=== PATIENT | male | born 1990 | race American Indian/Alaskan Native ===

== ENCOUNTER 2019-02-05 13:43 | Emergency (ER) | payer MEDICAID ==
[2019-02-05 13:44] VITALS: BMI 25.8
[2019-02-05 14:04] VITALS: BP 128/81; PULSE 98; RESP 16; TEMP 98.2; O2SAT 98
--- NOTE | 2019-02-05 15:30 | C.PDOC ---
History Of Present Illness 28 y/o male presents to the ER complaining of nasal congestion, dry cough, sore throat, and body aches which have been present for the past 4 days. Patient states that he has associated nausea. Patient denies having fever,chills, vomiting, and abdominal pain. Time Seen by Provider: 02/05/19 14:26 Chief Complaint (Nursing): Cough, Cold, Congestion History Per: Patient History/Exam Limitations: no limitations Onset/Duration Of Symptoms: Days Current Symptoms Are (Timing): Still Present Severity: Moderate Past Medical History Reviewed: Historical Data, Nursing Documentation, Vital Signs Vital Signs: Last Vital Signs Temp 98.2 F 02/05/19 14:02 Pulse 98 H 02/05/19 14:02 Resp 16 02/05/19 14:02 BP 128/81 02/05/19 14:02 Pulse Ox 98 02/05/19 14:02 - Medical History PMH: No Chronic Diseases Denies: Chronic Kidney Disease Surgical History: No Surg Hx Family History: States: No Known Family Hx - Social History Hx Alcohol Use: Yes Hx Substance Use: Yes - Immunization History Hx Tetanus Toxoid Vaccination: Yes (UTD) Hx Influenza Vaccination: No Hx Pneumococcal Vaccination: No Review Of Systems Except As Marked, All Systems Reviewed And Found Negative. Constitutional: Positive for: Malaise. Negative for: Fever, Chills ENT: Positive for: Nose Congestion, Throat Pain Respiratory: Positive for: Cough (dry cough) Gastrointestinal: Positive for: Nausea. Negative for: Vomiting, Abdominal Pain Physical Exam - Physical Exam Appears: Non-toxic, No Acute Distress Skin: Normal Color, Warm, Dry Head: Atraumatic, Normacephalic Eye(s): bilateral: Normal Inspection Ear(s): Bilateral: Normal Nose: Normal Oral Mucosa: Moist Throat: Erythema (mild erythema), No Exudate Neck: Supple Chest: Symmetrical Cardiovascular: Rhythm Regular Respiratory: Normal Breath Sounds, No Rales, No Rhonchi, No Wheezing Gastrointestinal/Abdominal: Normal Exam, Soft, No Tenderness, No Guarding, No Rebound Neurological/Psych: Oriented x3, Normal Speech ED Course And Treatment O2 Sat by Pulse Oximetry: 98 (RA) Pulse Ox Interpretation: Normal Progress Note: Flu Swab is negative. Patient treated with Amoxicillin PO. Patient has been discharged and instructed to follow up with PMD in 1-2 days. Disposition - Disposition Disposition: HOME/ ROUTINE Disposition Time: 15:26 Condition: STABLE Additional Instructions: Follow up with PMD within 1-2 days. Return to ED if feel worse. Prescriptions: Amoxicillin [Amoxil 500 mg Cap] 500 mg PO Q8 #30 cap Fluticasone Propionate [Flonase] 1 spr NS BID #1 spr Ibuprofen [Motrin Tab] 600 mg PO Q8 #30 tab Ondansetron ODT [Zofran ODT] 4 mg PO Q6 #12 odt Instructions: Sore Throat, Adult (DC) Forms: [facility] (Turkmen) - Clinical Impression Clinical Impression: Pharyngitis - PA / STRATEGIC BUSINESS DEVELOPMENT / Resident Statement MD/DO has reviewed & agrees with the documentation as recorded. - Scribe Statement The provider has reviewed the documentation as recorded by the Abel Martini Provider Attestation All medical record entries made by the Abel were at my direction and personally dictated by me. I have reviewed the chart and agree that the record accurately reflects my personal performance of the history, physical exam, medical decision making, and the department course for this patient. I have also personally directed, reviewed, and agree with the discharge instructions and disposition.
== END 2019-02-05 16:09 | disposition home or self-care (01) ==
LOC: C.ER 13:43
DX: J02.9 Acute pharyngitis, unspecified (principal)